=== PATIENT | male | born 1980 | race Caucasian/White ===

== ENCOUNTER 2018-04-10 05:33 | Emergency (ER) | payer SELFPAY ==
[~2018-04-10] VITALS: Ht 172.7 cm; Wt 86.2 kg
[2018-04-10] MEDS ORDERED: ONDANSETRON PF 4 MG/2 ML VIAL. IV ONE (05:45)
[2018-04-10 06:00] LABS: BASO # 0.1 x10^3/uL (0.0-0.2); BASO % 1 % (0-3); EOS # 0.1 x10^3/uL (0.0-0.7); EOS % 1 % (0-3); HEMATOCRIT 42.2 % (39.0-53.0); HEMOGLOBIN 14.8 g/dL (13.0-17.5); LYMPH # 1.1 x10^3/uL (1.0-4.8); LYMPH % 12 % (24-48); MEAN CORPUSCULAR HEMOGLOBIN 30 pg (25-35); MEAN CORPUSCULAR HGB CONC 35 g/dL (31-37); MEAN CORPUSCULAR VOLUME 85 fL (79-100); MONO # 0.5 x10^3/uL (0.0-1.1); MONO % 6 % (0-9); NEUT # 7.6 x10^3uL (1.8-7.7); NEUT % 81 % (31-73); PLATELET COUNT 281 x10^3/uL (140-400); RED BLOOD COUNT 4.95 x10^6/uL (4.30-5.70); RED CELL DISTRIBUTION WIDTH 13.6 % (11.5-14.5); WHITE BLOOD COUNT 9.4 x10^3/uL (4.0-11.0)
[2018-04-10] MEDS ORDERED: MULTIVIT INFUSN,ADULT 4,VIT K 10 ML, THIAMINE INJ 100 MG, FOLIC ACID INJ 1 MG in IV NOR... IV SCH (06:00)
--- NOTE | 2018-04-10 06:04 | PHYS DOC ---
Past Medical History Past Medical History: Anxiety, Bipolar Past Medical History Unable to obtain due to altered mental status/intoxication Past Surgical History: No Surgical History Past Surgical History Unable to obtain due to altered mental status/intoxication Alcohol Use: Heavy Drug Use: Methamphetamine Social History Unable to obtain due to altered mental status/intoxication Adult General Chief Complaint Chief Complaint: ALCOHOL INTOXICATION HPI HPI 37-year-old male presents via EMS with report of altered mental status. EMS reports patient's significant other reported patient has been drinking considerable amount of ETOH. Also report of possible methamphetamine use. HPI limited due to patient's altered mental status/intoxication. Review of Systems Review of Systems Neurologic: Altered mental status ROS limited due to patient's altered mental status/intoxication Current Medications Current Medications Current Medications Medications (Trade) Dose Ordered Sig/Aziza Start Time Stop Time Status Last Admin Dose Admin Multivitamins 10 ml/Thiamine HCl 100 mg/Folic Acid 1 mg/Sodium Chloride 1,011.2 ml @ 1,000 mls/ hr Q1H 04/10/18 06:00 04/10/18 06:26 DC 04/10/18 06:26 1,000 MLS/HR Ondansetron HCl (Zofran) 4 mg 1X ONCE 04/10/18 05:45 04/10/18 05:46 DC 04/10/18 05:45 4 MG Allergies Allergies Allergies Coded Allergies Type Severity Reaction Last Updated Verified Penicillins Allergy Unknown Nausea and Vomiting 07/18/15 Yes haloperidol Allergy Unknown 07/18/15 Yes Physical Exam Physical Exam Constitutional: Well developed, well nourished, obtunded HENT: Normocephalic, atraumatic, oropharynx moist Eyes: PERRL, EOMI, conjunctiva normal, horizontal nystagmus noted Neck: Supple, no swelling, no trauma noted Cardiovascular: Heart rate regular rhythm, no murmur [] Lungs & Thorax: Bilateral breath sounds equal, upper airways sounds noted Abdomen: Soft, no tenderness Skin: Warm, dry, no erythema, no rash. [] Back: No tenderness, no CVA tenderness. [] Extremities: No deformity, CR < 2 sec, bilateral radial pulses +2, bilateral posterior tibialis pulses +2 Neurologic: GCS 13, moves extremities but intermittantly will follow commands Current Patient Data Vital Signs Vital Signs Date Time Temp Pulse Resp B/P (MAP) Pulse Ox O2 Delivery O2 Flow Rate FiO2 04/10/18 09:02 85 16 117/74 (88) 96 Room Air 04/10/18 05:41 96.3 96.3 Lab Values Laboratory Tests Test 04/10/18 05:40 White Blood Count 9.4 x10^3/uL (4.0-11.0) Red Blood Count 4.95 x10^6/uL (4.30-5.70) Hemoglobin 14.8 g/dL (13.0-17.5) Hematocrit 42.2 % (39.0-53.0) Mean Corpuscular Volume 85 fL (79-100) Mean Corpuscular Hemoglobin 30 pg (25-35) Mean Corpuscular Hemoglobin Concent 35 g/dL (31-37) Red Cell Distribution Width 13.6 % (11.5-14.5) Platelet Count 281 x10^3/uL (140-400) Neutrophils (%) (Auto) 81 % (31-73) H Lymphocytes (%) (Auto) 12 % (24-48) L Monocytes (%) (Auto) 6 % (0-9) Eosinophils (%) (Auto) 1 % (0-3) Basophils (%) (Auto) 1 % (0-3) Neutrophils # (Auto) 7.6 x10^3uL (1.8-7.7) Lymphocytes # (Auto) 1.1 x10^3/uL (1.0-4.8) Monocytes # (Auto) 0.5 x10^3/uL (0.0-1.1) Eosinophils # (Auto) 0.1 x10^3/uL (0.0-0.7) Basophils # (Auto) 0.1 x10^3/uL (0.0-0.2) Prothrombin Time 13.8 SEC (11.7-14.0) Prothrombin Time INR 1.1 (0.8-1.1) PTT 29 SEC (24-38) Sodium Level 143 mmol/L (136-145) Potassium Level 3.4 mmol/L (3.5-5.1) L Chloride Level 103 mmol/L (98-107) Carbon Dioxide Level 24 mmol/L (21-32) Anion Gap 16 (6-14) H Blood Urea Nitrogen 11 mg/dL (8-26) Creatinine 0.8 mg/dL (0.7-1.3) Estimated GFR (Cockcroft-Gault) 109.4 BUN/Creatinine Ratio 14 (6-20) Glucose Level 119 mg/dL (70-99) H Calcium Level 8.3 mg/dL (8.5-10.1) L Magnesium Level 2.3 mg/dL (1.8-2.4) Total Bilirubin 0.4 mg/dL (0.2-1.0) Aspartate Amino Transferase (AST) 19 U/L (15-37) Alanine Aminotransferase (ALT) 40 U/L (16-63) Alkaline Phosphatase 97 U/L (46-116) Creatine Kinase 53 U/L (39-308) Troponin I Quantitative < 0.017 ng/mL (0.000-0.055) Total Protein 7.4 g/dL (6.4-8.2) Albumin 4.0 g/dL (3.4-5.0) Albumin/Globulin Ratio 1.2 (1.0-1.7) Lipase 114 U/L (73-393) Salicylates Level < 2.8 mg/dL (2.8-20.0) L Salicylate Last Dose Date Unknown Salicylate Last Dose Time Unknown Acetaminophen Level < 2 mcg/ml (10-30) L Acetaminophen Last Dose Date Unknown Acetaminophen Last Dose Time Unknown Ethyl Alcohol Level 262 mg/dL (0-10) H Laboratory Tests 04/10/18 05:40 Laboratory Tests 04/10/18 05:40 EKG EKG [] Radiology/Procedures Radiology/Procedures [] Course & Med Decision Making Course & Med Decision Making Pertinent Labs and Imaging studies reviewed. (See chart for details) Patient presents via EMS with report of possible ETOH and meth intoxication. Patient visible altered. No significant signs of trauma. Patient will voice some information but otherwise obtunded. Intermittently will follow commands. Labs obtained and pending. EKG pending. CT head/cervical spine obtained due to patient's altered mental status and inability to provide history. Sign out given to Dr. Valentine for further evaluation and final disposition. VIKASH reevaluation at 7:30 AM and 10:30 AM patient became gradually more alert and awake and he was able to provide an address and he will be discharged in stable condition diagnosis of alcohol intoxication and drug abuse. Dragon Disclaimer Dragon Disclaimer This electronic medical record was generated, in whole or in part, using a voice recognition dictation system. Departure Departure Impression: Primary Impression: Altered mental status Disposition: 01 HOME, SELF-CARE Condition: IMPROVED Referrals: NO PCP (PCP) Problem Qualifiers Primary Impression: Altered mental status Altered mental status type: unspecified Qualified Codes: R41.82 - Altered mental status, unspecified RYAN GUERRERO DO Apr 10, 2018 06:04 COSMO VALENTINE MD Apr 10, 2018 10:56
--- NOTE | 2018-04-10 06:23 | RAD ---
PROCEDURE: PORTABLE CHEST 1V CLINICAL INDICATION: altered mental status COMPARISON: None FINDINGS: No pneumothorax identified. Cardiac and mediastinal contours unremarkable. No pulmonary consolidation or acute airspace disease. No acute osseous abnormalities identified. IMPRESSION: No pulmonary consolidation or acute airspace disease. Electronically signed by: Rene Acosta DO (04/10/2018 6:19 AM) [id number]
[2018-04-10 06:29] LABS: CALCIUM 8.3 mg/dL (8.5-10.1); CREATININE 0.8 mg/dL (0.7-1.3); GFR 109.4; POTASSIUM 3.4 mmol/L (3.5-5.1)
[2018-04-10 06:31] LABS: ACETAMIN < 2 mcg/ml (10-30); SALIC < 2.8 mg/dL (2.8-20.0)
[2018-04-10 06:32] LABS: ETHANOL 262 mg/dL (0-10)
[2018-04-10 06:33] LABS: ALBUMIN/GLOBULIN RATIO 1.2 (1.0-1.7); MAGNESIUM 2.3 mg/dL (1.8-2.4); TOTAL BILIRUBIN 0.4 mg/dL (0.2-1.0); TOTAL PROTEIN 7.4 g/dL (6.4-8.2)
--- NOTE | 2018-04-10 06:36 | RAD ---
PQRS Compliance statement: One or more of the following individualized dose reduction techniques were utilized for this examination: 1. Automated exposure control. 2. Adjustment of the mA and/or kV according to patient size. 3. Use of iterative reconstruction technique. Indication:ALTERED MENTAL STATUS, PAIN TECHNIQUE: CT head without IV contrast COMPARISON:07/18/2015 FINDINGS: No pathologic extra-axial or intra-axial fluid collection. The ventricles and basal cisterns are within normal limits. No acute intracranial bleed. No focal loss of liver differentiation. Orbits within normal limits. Moderately displaced fracture is seen of the right nasal bone, age indeterminate. The paranasal sinuses and mastoid air cells are within normal limits. IMPRESSION: No acute intracranial process. Indication:ALTERED MENTAL STATUS, PAIN TECHNIQUE: CT of the cervical spine without IV contrast with multiplanar reformats. COMPARISON:None FINDINGS: The cervical spine is in normal anatomic alignment. Atlantoaxial joint interval is preserved. No compression deformities. Facet joints are in normal anatomic alignment. No acute fractures. The noncontrast appearance of the neck soft tissues is within normal limits. Clear lung apices. IMPRESSION: No acute fractures. Electronically signed by: Rene Acosta DO (04/10/2018 6:33 AM) [id number]
[2018-04-10 06:50] LABS: PROTHROMBIN TIME PATIENT 13.8 SEC (11.7-14.0)
--- NOTE | 2018-04-10 07:01 | EKG ---
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
[2018-04-10 10:30] VITALS: BP 119/82
== END 2018-04-10 10:55 | disposition home or self-care (01) ==
LOC: ER 05:33
DX: R41.82 Altered mental status, unspecified (principal); F41.9 Anxiety disorder, unspecified; F31.9 Bipolar disorder, unspecified; F10.20 Alcohol dependence, uncomplicated; Y90.8 Blood alcohol level of 240 mg/100 ml or more; Z88.0 Allergy status to penicillin; Z88.8 Allergy status to other drugs, medicaments and biological substances
CPT/HCPCS: 36415; 70450; 71045; 72125; 80053; 80329; 82550; 83690; 83735; 84484; 85025; 85610; 85730; 93005; 96365; 96366; 96375; 99285; G0480; G6039; J2405; J7030